=== PATIENT | female | born 1950 | race Caucasian/White ===

== ENCOUNTER → 2017-11-04 | Outpatient (CLI) | payer OTHER ==
[~2017-11-04] MED LIST: ASPI-428 PO; CALC0.2510 PO; CARV6.252 PO; DONE1TAB26 PO; FURO-85 PO; INSDGIPEN SC; LEVO50TA PO; LINA1TAB PO; METO-157 PO; MULT-513 PO; NORT50CA PO; NRN300 PO; NVLG SC; PANT40TA PO; POTA-639 PO; SIMV20TA2 PO; SODIUM BICARBONATE PO; TIZA4CAP PO
--- NOTE | 2017-11-04 12:26 | DIAGNOSTIC IMAGING REPORT ---
CT SCAN OF THE ABDOMEN AND PELVIS WITHOUT CONTRAST CLINICAL HISTORY: Parastomal hernia. Abdominal pain. COMPARISON STUDY: No previous studies for comparison. TECHNIQUE: CT scan of the abdomen and pelvis was performed from the lung bases to the proximal femurs. Images are reviewed in the axial, sagittal, and coronal planes. IV contrast was not administered for this examination. A dose lowering technique was utilized adhering to the principles of ALARA. CT DOSE: 600.27 mGy.cm FINDINGS: Lower chest: There are by basilar dependent atelectatic changes. Liver: The unenhanced liver is normal in size, contour, and attenuation. There is no intrahepatic biliary ductal dilatation. Gallbladder: Contracted or surgically absent. Spleen: Normal in size and attenuation. Pancreas: Unremarkable. Adrenal glands: Unremarkable. 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 Bowel: There are no transition zone to indicate bowel obstruction. There is a large midline ventral hernia. The hernia sac measures 15 x 7.3 x 12.7 cm. The hernia contains both large and small bowel loops. The hernia neck measures 6 cm. There appears to be an associated stoma. Peritoneum: There is no intraperitoneal free air or abdominal ascites. Vasculature: The abdominal aorta is normal in course and caliber. Adenopathy: None. Pelvic viscera: The uterus appears surgically absent Skeletal structures: No destructive osseous lesions are seen. IMPRESSION: 1. Large midline parastomal hernia measuring 15 x 7.3 x 2.7 cm. The parastomal hernia contains both large and small bowel loops. There is no current evidence of obstruction. 2. Dilated right renal pelvis with a configuration suggestive of a UPJ type obstruction. No renal, ureteral, or bladder calculi identified. 3. No evidence of pathologic adenopathy 4. No acute inflammatory changes. Electronically signed by: Albaro Dewitt M.D. 11/04/2017 12:24 PM Dictated Date/Time: 11/04/2017 12:18 PM
== END | disposition home or self-care (01) ==
LOC: C.CTS 11:58
PROVIDERS: ATTEND Colon & Rectal Surgery
DX: R10.9 Unspecified abdominal pain (principal)

== ENCOUNTER → 2017-11-25 | Day surgery (SDC) | payer OTHER ==
[2017-11-14 15:12] VITALS: Ht 160 cm; Wt 85.9 kg
[~2017-11-25] VITALS: Ht 160 cm; Wt 85.9 kg
[~2017-11-25] MED LIST changes: +LIDOCAINE HCL 2% 2 ML VIAL (20MG/ML) ONE; +PROPOFOL IV EMULSION 10 MG/ML 20 ML VIAL ONE
--- NOTE | 2017-11-25 13:07 | Endo History and Physical ---
History & Physical Date of Service: Nov 25, 2017. Chief Complaint: ABDOMINAL PAIN Referring Physician: DR. MENDOZA THOMAS History of Present Illness For colonoscopy Past Surgical History Hx Cardiac Surgery: Yes (PACEMAKER) Hx Internal Defibrillator: No Hx Pacemaker: No Hx Abdominal Surgery: Yes (C SECTION,COLON RESECTION W COLOSTOMY,OOPHORECTOMY) Hx of Implantable Prosthesis: No Hx Post-Op Nausea and Vomiting: No Hx Cancer Surgery: No Hx Thoracic Surgery: No Hx Orthopedic: No Hx Urinary Tract Surgery: No Family History IBD Social History Smoking Status: Former Smoker Hx Substance Use: No Hx Alcohol Use: No Allergies Coded Allergies: Adhesives (Verified Allergy, Unknown, RASH,REDNESS WITH TAPE, 11/14/17) Dust Mite Extract (Verified Allergy, Unknown, RUNNY NOSE, 11/14/17) Erythromycin (Verified Allergy, Unknown, nausea, 11/14/17) Estrogens (Verified Allergy, Unknown, rash, 11/14/17) Metronidazole (Verified Allergy, Unknown, pain in joints, 11/14/17) Molds and Smuts (Verified Allergy, Unknown, RUNNY NOSE, 11/25/17) Penicillins (Verified Allergy, Unknown, rash, 11/14/17) Procaine (Verified Allergy, Unknown, rash, 11/14/17) Secobarbital (Verified Allergy, Unknown, pass out, 11/14/17) Silica (Verified Allergy, Unknown, REDNESS,SEVERE SKIN IRRITATION, 11/14/17) Sulfa Drugs (Verified Allergy, Unknown, rash, 11/14/17) Sulfamethoxazole w/Trimethoprim (Verified Allergy, Unknown, rash, 11/14/17) Tetracycline (Verified Allergy, Unknown, rash, 11/14/17) Current Medications Reported Home Medications Medications Dose Route/Sig Max Daily Dose Days Date Category Dose Instructions Mvi With Minerals (Multivitamins/Minerals) Tab 1 Tab PO HS 11/14/17 Reported Ecotrin Low Strength (Aspirin) 81 Mg Tab 1 Tab PO HS 30 11/14/17 Reported Protonix (Pantoprazole Sodium) 40 Mg Tab 40 Mg PO BID 11/14/17 Reported Zanaflex (Tizanidine HCl) 4 Mg Cap 4 Mg PO HS 11/14/17 Reported Zocor (Simvastatin) 20 Mg Tab 20 Mg PO HS 11/14/17 Reported Coreg (Carvedilol) 6.25 Mg Tab 6.25 Mg PO BID 11/14/17 Reported Donepezil Hcl (Donepezil Hydrochloride) 10 Mg Tab 20 Mg PO HS 11/14/17 Reported Pamelor (Nortriptyline HCl) 50 Mg Cap 50 Mg PO AM/HS 11/14/17 Reported Klor-Con (Potassium Chloride) 20 Meq Tabcr 20 Meq PO QPM 11/14/17 Reported Rocaltrol Cap (Calcitriol) 0.25 Mcg Cap 0.25 Mcg PO 3XWEEK 11/14/17 Reported Synthroid (Levothyroxine Sodium) 50 Mcg Tab 50 Mcg PO QAM 11/14/17 Reported Reglan (Metoclopramide HCl) 10 Mg Tab 5 Mg PO QAM 11/14/17 Reported NAUSEA Gabapentin 300 Mg Cap 300 Mg PO TID 11/14/17 Reported Lasix (Furosemide) 20 Mg Tab 20 Mg PO BID 11/14/17 Reported Tradjenta (Linagliptin) 5 Mg Tab 1 Tab PO QAM 90 11/14/17 Reported [Sodium Bicarbonate] 10 Gm PO HS 11/14/17 Reported Novolog (Insulin Aspart) 100 Units/Ml Inj SC TIDM 11/14/17 Reported 10 UNUTS AM 3 UNITS NOON 13 UNITS HS Lantus Solostar (Insulin Glargine) 100 Unit/Ml Inj 40 Units SC QAM 11/14/17 Reported Vital Signs Weight (Kilograms): 85.91 Height (Feet): 5 Height (Inches): 3 Date Time Temp Pulse Resp B/P (MAP) Pulse Ox O2 Delivery O2 Flow Rate FiO2 11/25/17 12:28 36.8 69 18 162/100 (120) 96 Room Air Physical Exam General Appearance: + obese Respiratory/Chest: Respiratory effort: no dyspnea Cardiovascular: Heart Auscultation: RRR Abdomen: Bowel Sounds: pertinent finding (colostomy with parastomal hernioa) Assessment and Plan abd pain for colonoscopy
--- NOTE | 2017-11-25 13:44 | Discharge Instructions ---
Endoscopy Patient Instructions Date / Procedure(s) Performed Nov 25, 2017. Colonoscopy Allergy Information Coded Allergies: Adhesives (Verified Allergy, Unknown, RASH,REDNESS WITH TAPE, 11/14/17) Dust Mite Extract (Verified Allergy, Unknown, RUNNY NOSE, 11/14/17) Erythromycin (Verified Allergy, Unknown, nausea, 11/14/17) Estrogens (Verified Allergy, Unknown, rash, 11/14/17) Metronidazole (Verified Allergy, Unknown, pain in joints, 11/14/17) Molds and Smuts (Verified Allergy, Unknown, RUNNY NOSE, 11/25/17) Penicillins (Verified Allergy, Unknown, rash, 11/14/17) Procaine (Verified Allergy, Unknown, rash, 11/14/17) Secobarbital (Verified Allergy, Unknown, pass out, 11/14/17) Silica (Verified Allergy, Unknown, REDNESS,SEVERE SKIN IRRITATION, 11/14/17) Sulfa Drugs (Verified Allergy, Unknown, rash, 11/14/17) Sulfamethoxazole w/Trimethoprim (Verified Allergy, Unknown, rash, 11/14/17) Tetracycline (Verified Allergy, Unknown, rash, 11/14/17) Discharge Date / Findings Nov 25, 2017. Parastomal hernia Medication Instructions Restart Stopped Medication(s): resume meds Reported Home Medications Medications Dose Route/Sig Max Daily Dose Days Date Category Dose Instructions Mvi With Minerals (Multivitamins/Minerals) Tab 1 Tab PO HS 11/14/17 Reported Ecotrin Low Strength (Aspirin) 81 Mg Tab 1 Tab PO HS 30 11/14/17 Reported Protonix (Pantoprazole Sodium) 40 Mg Tab 40 Mg PO BID 11/14/17 Reported Zanaflex (Tizanidine HCl) 4 Mg Cap 4 Mg PO HS 11/14/17 Reported Zocor (Simvastatin) 20 Mg Tab 20 Mg PO HS 11/14/17 Reported Coreg (Carvedilol) 6.25 Mg Tab 6.25 Mg PO BID 11/14/17 Reported Donepezil Hcl (Donepezil Hydrochloride) 10 Mg Tab 20 Mg PO HS 11/14/17 Reported Pamelor (Nortriptyline HCl) 50 Mg Cap 50 Mg PO AM/HS 11/14/17 Reported Klor-Con (Potassium Chloride) 20 Meq Tabcr 20 Meq PO QPM 11/14/17 Reported Rocaltrol Cap (Calcitriol) 0.25 Mcg Cap 0.25 Mcg PO 3XWEEK 11/14/17 Reported Synthroid (Levothyroxine Sodium) 50 Mcg Tab 50 Mcg PO QAM 11/14/17 Reported Reglan (Metoclopramide HCl) 10 Mg Tab 5 Mg PO QAM 11/14/17 Reported NAUSEA Gabapentin 300 Mg Cap 300 Mg PO TID 11/14/17 Reported Lasix (Furosemide) 20 Mg Tab 20 Mg PO BID 11/14/17 Reported Tradjenta (Linagliptin) 5 Mg Tab 1 Tab PO QAM 90 11/14/17 Reported [Sodium Bicarbonate] 10 Gm PO HS 11/14/17 Reported Novolog (Insulin Aspart) 100 Units/Ml Inj SC TIDM 11/14/17 Reported 10 UNUTS AM 3 UNITS NOON 13 UNITS HS Lantus Solostar (Insulin Glargine) 100 Unit/Ml Inj 40 Units SC QAM 11/14/17 Reported Provider Instructions Activity Restrictions - No exercising or heavy lifting for 24 hours. - Do not drink alcohol the day of the procedure. - Do not drive a car or operate machinery until the day after the procedure. - Do not make any important decisions or sign important papers in 24 hours after the procedure. Following Day: - Return to full activity which may include returning to work/school. Diet Start your diet with liquids and light foods (jello, soup, juice, toast). Then eat your usual diet if not nauseated. Treatment For Common After Affects For mild abdominal pain, bloating, or excessive gas: - Rest - Eat lightly - Lie on right side Follow-Up Information Follow-up with DR. MENDOZA THOMAS as scheduled Anesthesia Information What You Should Know You have had a procedure that required some medicine to reduce anxiety and discomfort. This treatment is called moderate sedation. After receiving the treatment, you may be sleepy, but you will be able to breathe on your own. The effects of the treatment may last for several hours. Follow these instructions along with Activity/Diet recommendations noted above: * Do NOT do anything where dizziness or clumsiness would be dangerous. * Rest quietly at home today, then you can be up and about tomorrow. * Have a responsible person stay with you the rest of today. * You may have had an I.V. today. If so, you may take the dressing off later today. Recommendations Call your doctor if: * Trouble breathing * Continuous vomiting for more than 24 hours * Temperature above 101 degrees * Severe abdominal pain or bloating * Pain not relieved by pain medicine ordered * There is increased drainage or redness from any incision * A large amount of rectal bleeding greater than 2-3 tablespoons. (If you had a polyp/s removed or have hemorrhoids, a small amount of blood - from the rectum is to be expected.) * You have any unanswered questions or concerns. IN THE EVENT OF A SERIOUS EMERGENCY, GO TO THE NEAREST EMERGENCY ROOM Your discharge instructions were prepared by provider Cain Burden. Patient Instructions Signature Page Megan Tanner Patient (or Guardian) Signature/Date: I have read and understand the instructions given to me by my caregivers. Caregiver/RN/Doctor Signature/Date: The above-named patient and/or guardian has received patient instructions on this date. + Original Patient Signature Page (only) stays with chart. Please make copy for patient.
--- NOTE | 2017-11-25 13:48 | GI REPORT ---
Patient Name: Megan Tanner Procedure Date: 11/25/2017 1:17 PM Date of : 1950 Admit Type: Outpatient Age: 67 Gender: Female Attending MD: Cian Burden MD Procedure: Colonoscopy Providers: Cain Burden MD Referring MD: Daniel Duran Indications: Generalized abdominal pain Medicines: Propofol total dose 160 mg IV, Lidocaine 40 mg IV Complications: No immediate complications. Estimated Blood Loss: Estimated blood loss: none. Procedure: Pre-Anesthesia Assessment: - Prior to the procedure, a History and Physical was performed, and patient medications, allergies and sensitivities were reviewed. The patient's tolerance of previous anesthesia was reviewed. - The risks and benefits of the procedure and the sedation options and risks were discussed with the patient. All questions were answered and informed consent was obtained. After I obtained informed consent, the scope was passed under direct vision. Throughout the procedure, the patient's blood pressure, pulse, and oxygen saturations were monitored continuously. The scope was introduced through the descending colostomy and advanced to the cecum, identified by appendiceal orifice and ileocecal valve. The colonoscopy was performed without difficulty. The patient tolerated the procedure well. The quality of the bowel preparation was good. Findings: Normal mucosa was found in the descending colon, in the transverse colon, in the ascending colon and in the cecum. There is a stomal hernia. Impression: - Normal mucosa in the descending colon, in the transverse colon, in the ascending colon and in the cecum. - No specimens collected. Recommendation: - Discharge patient to home (ambulatory). - Continue present medications. - Return to referring physician as previously scheduled. Cain Burden M.D. Cain Burden MD 11/25/2017 1:47:58 PM This report has been signed electronically. Note Initiated On: 11/25/2017 1:17 PM Number of Addenda: 0 I attest to the content of the Intraoperative Record and orders documented therein, exceptions below {[id number]}
[2017-11-25 14:13] VITALS: BP 159/66; PULSE 62; O2SAT 96
--- NOTE | 2017-11-25 14:33 | Anesthesiology Progress Note ---
Anesthesia Post Op Note Date & Time Nov 25, 2017 at 14:33 Vital Signs Pain Intensity: 0 Vital Signs Past 12 Hours Date Time Temp Pulse Resp B/P (MAP) Pulse Ox O2 Delivery O2 Flow Rate FiO2 11/25/17 14:13 62 18 159/66 (97) 96 Room Air 11/25/17 13:59 61 18 121/83 (96) 96 Room Air 11/25/17 13:43 63 16 124/66 (85) 93 Room Air 11/25/17 12:28 36.8 69 18 162/100 (120) 96 Room Air Notes Mental Status: alert / awake / arousable, participated in evaluation Pt Amnestic to Procedure: Yes Nausea / Vomiting: adequately controlled Pain: adequately controlled Airway Patency, RR, SpO2: stable & adequate BP & HR: stable & adequate Hydration State: stable & adequate Anesthetic Complications: no major complications apparent
== END | disposition home or self-care (01) ==
LOC: C.GI 11:47
PROVIDERS: ATTEND Internal Medicine Gastroenterology
DX: R10.84 Generalized abdominal pain (principal); K94.09 Other complications of colostomy; I10 Essential (primary) hypertension; I25.10 Atherosclerotic heart disease of native coronary artery without angina pectoris; I25.2 Old myocardial infarction; K21.9 Gastro-esophageal reflux disease without esophagitis; Z95.0 Presence of cardiac pacemaker; Z90.49 Acquired absence of other specified parts of digestive tract; Z87.891 Personal history of nicotine dependence; Z88.2 Allergy status to sulfonamides; Z88.0 Allergy status to penicillin